=== PATIENT | female | born 1945 | race Caucasian/White ===

== ENCOUNTER → 2019-07-17 | Outpatient (CLI) | payer MEDICARE, OTHER | END | disposition home or self-care (01) | LOC: OIH 13:16 | PROVIDERS: ATTEND Internal Medicine | DX: J20.9 Acute bronchitis, unspecified (principal); M47.814 Spondylosis without myelopathy or radiculopathy, thoracic region | CPT/HCPCS: 71046 ==

== ENCOUNTER 2021-04-22 16:28 | Observation (INO) | payer MEDICARE, OTHER ==
[~2021-04-22] VITALS: Ht 162.6 cm; Wt 77.6 kg
[2021-04-22] MEDS ORDERED: NITROGLYCERIN 0.4 MG SL TAB SL ONE (16:43)
[2021-04-22] MEDS ORDERED: ASPIRIN 325MG TAB ONE (16:43)
[2021-04-22] MEDS ORDERED: NITROGLYCERIN 1GM OINT 1 INCH/1GM TD ONE ×2 (16:43→17:00)
[2021-04-22 16:45] LABS: BASOPHILS % (AUTO) 0.9 % (0.0-5.0); EOSINOPHILS % (AUTO) 2.4 % (0.0-8.0); HEMATOCRIT 40.4 % (36-48); LYMPHOCYTES % (AUTO) 23.5 % (21.0-51.0); MEAN CORPUSCULAR HEMOGLOBIN 33.3 pg (27.0-33.0); MEAN CORPUSCULAR HGB CONC 33.9 g/dL (32.0-36.0); MEAN CORPUSCULAR VOLUME 98.3 fL (79-99); MONOCYTES % (AUTO) 11.5 % (3.0-13.0); NEUTROPHILS % (AUTO) 61.4 % (40.0-77.0); PLATELET COUNT (AUTO) 250 K/uL (130-400); RED BLOOD CELL COUNT(AUTO) 4.11 MIL/uL (4.00-5.50); WHITE BLOOD COUNT (AUTO) 7.8 K/uL (4.8-10.8)
[2021-04-22] MEDS ORDERED: ASPIRIN 325MG TAB PO ONE (17:00)
[2021-04-22] MEDS ORDERED: NITROGLYCERIN 0.4 MG SL TAB SL PRN ×2 (17:00→20:00)
[2021-04-22 17:03] LABS: CARBON DIOXIDE 26 mmol/L (21-32); CHLORIDE 101 mmol/L (101-111); GLOMERULAR FILTR. RATE CALC 57 mL/min (>60); GLUCOSE,RANDOM 122 mg/dL (70-105); POTASSIUM 3.1 mmol/L (3.5-5.1); SODIUM SERUM 140 mmol/L (136-145); UREA NITROGEN, BLOOD 25 mg/dL (7-18)
[2021-04-22 17:05] LABS: B-TYPE NATRIURETIC PEPTIDE 67 pg/mL (0-100)
[2021-04-22 17:07] LABS: ALANINE AMINOTRANSFERASE 88 U/L (12-78); ALBUMIN 3.8 g/dL (3.5-5.0); ASPARTATE AMINOTRANSFERASE 35 U/L (10-37); TOTAL PROTEIN, SERUM 7.5 g/dL (6.0-8.3)
[2021-04-22 17:13] LABS: CRP QUANTITATIVE < 2.00 mg/L (0.00-9.0)
[2021-04-22] MEDS ORDERED: LISI1TAB53 PO (17:13)
[2021-04-22] MEDS ORDERED: ATOR10 PO (17:13)
[2021-04-22] MEDS ORDERED: OXYB10TA30 PO (17:13)
[2021-04-22] MEDS ORDERED: LEVO88CA4 PO (17:13)
[2021-04-22] MEDS ORDERED: METF-444 PO (17:13)
[2021-04-22] MEDS ORDERED: DULO30CA52 PO (17:13)
[2021-04-22] MEDS ORDERED: ALEN70SO3 PO (17:13)
[2021-04-22] MEDS ORDERED: POTASSIUM BICARB/CIT AC 25 MEQ TABLET.EFF PO ONE (17:30)
[2021-04-22 18:55] LABS: APPEARANCE,URINE Clear (CLEAR); BILIRUBIN,URINE Negative (NEGATIVE); COLOR,URINE Yellow (YELLOW); GLUCOSE, URINE (UA) Negative (NEGATIVE); KETONES,URINE Negative (NEGATIVE); LEUKOCYTE ESTERASE ,URINE Small (NEGATIVE); NITRATE,URINE Negative (NEGATIVE); OCCULT BLOOD,URINE Negative (NEGATIVE); PROTEIN,URINE Negative (NEGATIVE); UROBILINOGEN,URINE 0.2 mg/dL (0.2-1.0)
[2021-04-22 19:13] LABS: BACTERIA,URINE Rare /HPF (None Seen); RBC,URINE None Seen /HPF (0-1)
[2021-04-22] MEDS ORDERED: ONDANSETRON 4MG INJ IV PRN (20:00)
[2021-04-22] MEDS ORDERED: HYDRALAZINE 20MG/ML VIAL IV PRN (20:00)
[2021-04-22] MEDS ORDERED: ACETAMINOPHEN 325 MG TAB PO PRN ×2 (20:00)
[2021-04-22] MEDS ORDERED: KETOROLAC 15MG/ML VIAL (15MG/ML) IM PRN (20:00)
[2021-04-22] MEDS ORDERED: POTASSIUM CHLORIDE 10% ELIXIR 20 MEQ/15 ML UDCUP PO PRN (20:30)
[2021-04-22] MEDS ORDERED: KCL 20 MEQ ERTAB PO PRN (20:30)
[2021-04-22 20:38] LABS: CHOLESTEROL 171 mg/dL (<200); HDL CHOLESTEROL 73 mg/dL (35-85); LDL DIRECT 78 mg/dL (0-99); TRIGLYCERIDES 83 mg/dL (30-200)
[2021-04-22] MEDS: INSULIN HUMULIN R 100 UNIT/ML 3ML SQ SCH (20:52)
[2021-04-22] MEDS: METFORMIN HCL 500 MG TABLET PO SCH (20:52)
[2021-04-23 03:59] VITALS: BP 125/62
[2021-04-23 07:00] VITALS: BP 133/56
[2021-04-23] MEDS: INSULIN HUMULIN R 100 UNIT/ML 3ML SQ SCH ×4 (07:30→21:00)
[2021-04-23] MEDS: METFORMIN HCL 500 MG TABLET PO SCH (08:00)
[2021-04-23] MEDS ORDERED: HYDROCHLOROTHIAZIDE 25 MG TABLET PO SCH (09:00)
[2021-04-23 09:05] LABS: CREATININE 0.9 mg/dL (0.5-1.5); MAGNESIUM 1.3 mg/dL (1.80-2.40); POTASSIUM 3.7 mmol/L (3.5-5.1)
[2021-04-23 11:00] VITALS: BP 130/69
[2021-04-23] MEDS: LISINOPRIL 20 MG TABLET PO SCH (11:30)
[2021-04-23] MEDS: ASPIRIN 81MG CHEW TAB PO SCH (11:30)
[2021-04-23] MEDS: FAMOTIDINE 20MG TAB PO SCH (11:31)
[2021-04-23] MEDS: ENOXAPARIN SODIUM 40 MG/0.4 ML SYRINGE SQ SCH (11:33)
[2021-04-23] MEDS: MAGNESIUM 2GM PREMIX 50ML 50 ML IV SCH (14:00)
[2021-04-23 16:00] VITALS: BP 125/62
[2021-04-23 19:48] VITALS: BP 106/56
[2021-04-23 23:42] VITALS: BP 113/57
[2021-04-24] MEDS ORDERED: ZOLPIDEM TARTRATE 5 MG TAB PO PRN (01:00)
[2021-04-24 03:59] VITALS: BP 135/70
[2021-04-24 04:51] LABS: CREATININE 0.8 mg/dL (0.5-1.5); MAGNESIUM 1.8 mg/dL (1.80-2.40); POTASSIUM 3.9 mmol/L (3.5-5.1)
[2021-04-24] MEDS: INSULIN HUMULIN R 100 UNIT/ML 3ML SQ SCH ×4 (06:43→20:46)
[2021-04-24 07:00] VITALS: BP 120/58
[2021-04-24] MEDS: METFORMIN HCL 500 MG TABLET PO SCH ×2 (08:00→17:43)
[2021-04-24] MEDS ORDERED: REGADENOSON 0.4 MG/5 ML PF SYG IVP SCH (11:00)
[2021-04-24 11:58] VITALS: BP 144/75
[2021-04-24] MEDS: ASPIRIN 81MG CHEW TAB PO SCH (12:09)
[2021-04-24] MEDS: FAMOTIDINE 20MG TAB PO SCH (12:15)
[2021-04-24] MEDS: LISINOPRIL 20 MG TABLET PO SCH (12:15)
[2021-04-24] MEDS: ENOXAPARIN SODIUM 40 MG/0.4 ML SYRINGE SQ SCH (12:16)
[2021-04-24] MEDS: MAGNESIUM 2GM PREMIX 50ML 50 ML IV SCH (13:32)
[2021-04-24] MEDS ORDERED: LISI20TA24 PO (15:44)
[2021-04-24] MEDS ORDERED: ASPI-1197 PO (15:44)
[2021-04-24 16:00] VITALS: BP 117/63
[2021-04-24 16:12] LABS: HEMATOCRIT 38.2 % (36-48); MEAN CORPUSCULAR HEMOGLOBIN 33.1 pg (27.0-33.0); MEAN CORPUSCULAR HGB CONC 32.2 g/dL (32.0-36.0); MEAN CORPUSCULAR VOLUME 102.7 fL (79-99); RED BLOOD CELL COUNT(AUTO) 3.72 MIL/uL (4.00-5.50); RED CELL DISTRIBUTION WIDTH 13.3 % (11.0-15.5); WHITE BLOOD COUNT (AUTO) 5.4 K/uL (4.8-10.8)
[2021-04-24] MEDS ORDERED: FAMOTIDINE 20MG VIAL IV ONE (16:30)
[2021-04-24] MEDS: PANTOPRAZOLE 40 MG/VIAL IVP SCH ×2 (17:47→20:45)
[2021-04-24 20:00] VITALS: BP 157/70
[2021-04-24] MEDS ORDERED: FAMOTIDINE 20MG VIAL IV SCH (21:00)
[2021-04-25] VITALS: BP 126/52
[2021-04-25 04:00] VITALS: BP 130/66
[2021-04-25 04:49] LABS: HEMATOCRIT 36.7 % (36-48); MEAN CORPUSCULAR HEMOGLOBIN 32.5 pg (27.0-33.0); MEAN CORPUSCULAR HGB CONC 32.7 g/dL (32.0-36.0); MEAN CORPUSCULAR VOLUME 99.5 fL (79-99); RED BLOOD CELL COUNT(AUTO) 3.69 MIL/uL (4.00-5.50); RED CELL DISTRIBUTION WIDTH 13.1 % (11.0-15.5); WHITE BLOOD COUNT (AUTO) 5.8 K/uL (4.8-10.8)
[2021-04-25] MEDS: INSULIN HUMULIN R 100 UNIT/ML 3ML SQ SCH (06:34)
[2021-04-25 08:00] VITALS: BP 138/70
[2021-04-25] MEDS: PANTOPRAZOLE 40 MG/VIAL IVP SCH (08:06)
[2021-04-25] MEDS: FAMOTIDINE 20MG TAB PO SCH (08:25)
[2021-04-25] MEDS: LISINOPRIL 20 MG TABLET PO SCH (08:25)
[2021-04-25] MEDS: METFORMIN HCL 500 MG TABLET PO SCH (08:25)
== END 2021-04-25 09:15 | disposition home or self-care (01) ==
LOC: EDH 16:28 → EDHIP 19:51 → 4CH 04-23 03:48 → UNDODISOB 04-25 09:15
PROVIDERS: ADMIT Internal Medicine; ATTEND Internal Medicine
DX: I24.9 Acute ischemic heart disease, unspecified (principal); Z20.822 Contact with and (suspected) exposure to COVID-19; E87.6 Hypokalemia; E83.42 Hypomagnesemia; I10 Essential (primary) hypertension; E11.9 Type 2 diabetes mellitus without complications; E78.5 Hyperlipidemia, unspecified; E03.9 Hypothyroidism, unspecified; K21.9 Gastro-esophageal reflux disease without esophagitis; T50.2X5A Adverse effect of carbonic-anhydrase inhibitors, benzothiadiazides and other diuretics, initial encounter; Z79.83 Long term (current) use of bisphosphonates; Z79.84 Long term (current) use of oral hypoglycemic drugs; Z79.890 Hormone replacement therapy; Z79.899 Other long term (current) drug therapy; Z90.710 Acquired absence of both cervix and uterus; Z98.890 Other specified postprocedural states; Z79.4 Long term (current) use of insulin; Z79.82 Long term (current) use of aspirin
CPT/HCPCS: 36415 ×4; 71045; 78452; 80048 ×2; 80053; 80061; 81001; 82270; 82550 ×3; 82948 ×9; 83735 ×2; 83874 ×3; 83880; 84484 ×4; 85025; 85027 ×2; 86140; 87635; 93005 ×4; 93017; 96365; 96366 ×2; 96372 ×2; 96375; 96376; 99285; A9500 ×2; C9113 ×2; G0378 ×58; J1650 ×2; J2785; J3475 ×2; 96374